=== PATIENT | male | born 1965 | race Caucasian/White ===

== ENCOUNTER 2016-07-02 07:57 | Emergency (ER) | payer OTHER ==
[~2016-07-02] VITALS: Ht 182.9 cm; Wt 93.0 kg
[~2016-07-02 07:57] MED LIST: BACTRIM DS TAB1 EACH PO; BACTROBAN15 GM TOP; DICLOFENAC SODI75 M2 PO; EC NAPROSYN500 MG PO; IBUPROFEN800 M1 PO; MOBIC 15MG15 MG PO; MOBIC15 M1 PO; NAPROSYN500 M1 PO; OSTEO BI-FLEX1 EAC1 PO; OXYCODONE HCL5 M1 PO; OXYCODONE5 M1 PO; OXYCODONE5 MG PO; PERCOCET 325 MG1 TA2 PO; PERCOCET 5-3251 EACH PO; PROTONIX20 M1 PO
--- NOTE | 2016-07-02 08:32 | ED GENERAL ADULT ---
History of Present Illness General Chief Complaint: General Adult Stated Complaint: RASH ? ABCESS ON FACE AND RT KNEE PAIN Source: patient Exam Limitations: no limitations Vital Signs & Intake/Output Vital Signs & Intake/Output Vital Signs Date Time Temp Pulse Resp B/P Pulse O2 O2 Flow FiO2 Ox Delivery Rate 07/02 0918 98.3 90 20 120/80 98 Room Air 07/02 0802 98.5 93 18 126/85 97 Room Air Allergies Coded Allergies: NO KNOWN ALLERGIES (02/19/16) Reconcile Medications Diclofenac Sodium 75 MG TABLET.DR 1 TAB PO BID ANTI-INFLAMMATORY (Reported) Doxycycline Hyclate 100 MG CAPSULE 1 CAP PO BID FOLLICULTIIS Mupirocin Calcium (Bactroban) 2 % CREAM..G. 1 LORENA TOP TID FOLLICULITIS apply to affected area(s) Oxycodone HCl 5 MG TABLET 1 TAB PO BIDP PRN PAIN Pantoprazole Sodium 40 MG TABLET.DR 1 CAP PO DAILY AC GI (Reported) Triage Note: 50 Y/O MALE C/O (1) R KNEE SWELLING "FOR A WHILE" - NO KNOWN INJURY. (2) ANTI-INFLAMMTORY WITH GOOD RELIEF, TOOK THIS AM (2) SMALL RED AREAS TO FACE/CHIN. STATES HE WAS EVAL'D ONCE BEFORE FOR SAME AND WAS GIVEN "A CREAM" WHICH WORKED. Triage Nurses Notes Reviewed? yes Onset: Gradual Duration: worse persistent since (1-2 weeks) Timing: recent history Injury Environment: home Severity: moderate Severity Numbers: 7 Modifying Factors: Improves With: immobilization, medication. HPI: Patient is a 50-year-old male with history of chronic knee pain and arthritis presenting to the emergency department with chief complaint worsening right knee pain been going on for the past 2 weeks. He reports that he "tweaked" his right knee over the holidays and noticed some increasing swelling. Denies any redness or fevers. He has an appointment with his orthopedist in a week and a half but his anti-inflammatory medication is not helping. He is also reporting increasing rash on the left side of face. He's had this before and he was told it is associated with his foster. He was given antibiotics at the time and antibiotic ointment which seemed to help. Denies any nausea vomiting fevers or chills chest pain or shortness of breath. (ADEEL HUMPHREYS,JEET) Past History Travel History Traveled to [place] past 21 day No Medical History Any Pertinent Medical History? 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 No (JEET LEES) Review of Systems Review of Systems Constitutional: Reports: no symptoms. Comments Review of systems: See HPI, All other systems negative. Constitutional, no chills fever or weight loss HEENT: No visual changes no sore throat no congestion Cardiovascular: No chest pain ,palpitation Skin, no jaundice Respiratory: No dyspnea cough sputum or hemoptysis GI: No nausea no vomiting : No dysuria No hematuria Muscle skeletal: no back pain, no neck pain, Neurologic: No numbness no gonzalez Psych: No stress anxiety or depression,. Heme/endocrine: No bruising no bleeding no polyuria or polydipsia Immunology: No splenectomy or history of AIDS (JEET LEES) Physical Exam Physical Exam General Appearance: well developed/nourished, no apparent distress, alert, awake , comfortable Comments: Well-developed well-nourished person in no acute distress HEENT: Pupils equally round and reactive to light and accommodation. Nose is atraumatic. Neck: Normal inspection Cardiovascular: normal JVP Respiratory: No respiratory distress. Extremity: no calf tenderness to palpation, normal and equal pulses. Tender to palpation along the medial aspect of the right patella. No erythema, moderate edema appreciated. Earful range of motion of the right patella somewhat limited secondary to pain. Negative anterior and posterior drawer test. Positive Vee test on the right patella. Pedal pulses are 2+ bilaterally. Neuro: Alert oriented x3, motor sensory normal Skin: Erythematous and vesicular rash noted over the left cheek and chin surrounding the foster. Nontender to palpation. No drainage. Psych: Mood and affect is normal, memory and judgment is normal. Core Measures ACS in differential dx? No CVA/TIA Diagnosis: No Severe Sepsis Present: No Septic Shock Present: No (JEET LEES) Progress Differential Diagnoses I considered the following diagnoses in my evaluation of the patient: Folliculitis, abscess, cellulitis, knee sprain, osteoarthritis, septic arthritis , gout, fx Plan of Care: Orders Procedure Date/time Status XRY-KNEE COMPLETE RIGHT 07/02 834 Active Diagnostic Imaging: Viewed by Me: Radiology Read. Discussed w/RAD: Radiology Read. Radiology Impression: PATIENT: ISABELL CAMPBELL PRESENT AGE: 50 PATIENT ACCOUNT NO: [id number] : 64 LOCATION: [facility] ORDERING PHYSICIAN: JEET HUMPHREYS SERVICE DATE: 07/02/16 EXAM TYPE: RAD - XRY-KNEE COMPLETE RIGHT EXAMINATION: XR KNEE, RIGHT CLINICAL INFORMATION: Pain and swelling. Rule out joint effusion. COMPARISON: Right knee radiographs dated 10/25/2015. TECHNIQUE: 4 radiographs of the right knee were performed. FINDINGS: There is no fracture or dislocation. There are degenerative changes of the medial and lateral compartments of the knee characterized by joint space narrowing and osteophytosis. There is spiking of the tibial spines. There is narrowing of the patellofemoral joint. The previously identified suprapatellar effusion is considerably smaller, if not completely resolved. IMPRESSION: Tricompartmental degenerative changes. The previously identified suprapatellar effusion is considerably smaller, if not completely resolved. DICTATED BY: KALI SHERIDAN MD DATE/TIME DICTATED:07/02/16899 TAPING MACHINE OPERATOR:DIANA DATE/TIME TRANSCRIBED:07/02/16899 CONFIDENTIAL, DO NOT COPY WITHOUT APPROPRIATE AUTHORIZATION. <Electronically signed in Other Vendor System> SIGNED BY: KALI SHERIDAN MD 07/02/16905 Initial ED EKG: none (ADEEL HUMPHREYS,JEET) Departure Departure Time of Disposition: 853 Disposition: HOME OR SELF CARE Condition: Stable Clinical Impression Primary Impression: Folliculitis Secondary Impressions: Knee pain Qualifiers: Laterality: right Chronicity: chronic Qualified Codes: M25.561 - Pain in right knee; G89.29 - Other chronic pain Referrals: MATILDE MAC MD (PCP/Family) Referred to [facility] as new patient No Additional Instructions: Follow-up with your primary care physician as well as her orthopedic. Return for worsening symptoms or concerns. Take antibiotics and use topical as prescribed. Take pain medication as prescribed for knee pain. Oxycodone is use for severe knee pain otherwise he can use [id number] Motrin. Departure Forms: Customer Survey General Discharge Information Prescriptions: Current Visit Scripts Mupirocin Calcium (Bactroban) 1 LORENA TOP TID #30 GM apply to affected area(s) Doxycycline Hyclate 1 CAP PO BID #20 CAP Oxycodone HCl 1 TAB PO BIDP PRN PAIN #10 TAB (JEET LEES) PA/INSPECTOR BALANCE TRUING Co-Sign Statement Statement: ED Attending supervision documentation- [] I saw and evaluated the patient. I have also reviewed all the pertinent lab results and diagnostic results. I agree with the findings and the plan of care as documented in the PA's/INSPECTOR BALANCE TRUING's documentation. x I have reviewed the ED Record and agree with the PA's/INSPECTOR BALANCE TRUING's documentation. [] Additions or exceptions (if any) to the PAs/INSPECTOR BALANCE TRUING's note and plan are summarized below: [] (REYES LAZO,CARITO) Critical Care Note Critical Care Note Critical Care Time: non-applicable (JEET LEES)
[2016-07-02] MEDS ORDERED: OXYCODONE HCL5 M1 PO (08:56)
[2016-07-02] MEDS ORDERED: BACTROBAN15 GM TOP (08:56)
[2016-07-02] MEDS ORDERED: DOXYCYCLINE HY100 M2 PO (08:56)
--- NOTE | 2016-07-02 09:06 | RADIOLOGY REPORT ---
EXAMINATION: XR KNEE, RIGHT CLINICAL INFORMATION: Pain and swelling. Rule out joint effusion. COMPARISON: Right knee radiographs dated 10/25/2015. TECHNIQUE: 4 radiographs of the right knee were performed. FINDINGS: There is no fracture or dislocation. There are degenerative changes of the medial and lateral compartments of the knee characterized by joint space narrowing and osteophytosis. There is spiking of the tibial spines. There is narrowing of the patellofemoral joint. The previously identified suprapatellar effusion is considerably smaller, if not completely resolved. IMPRESSION: Tricompartmental degenerative changes. The previously identified suprapatellar effusion is considerably smaller, if not completely resolved.
[2016-07-02 09:18] VITALS: BP 120/80
== END 2016-07-02 09:18 ==
LOC: ERH 07:57
DX: L73.9 Follicular disorder, unspecified (principal); M25.561 Pain in right knee
CPT/HCPCS: 73562-RT

== ENCOUNTER 2016-07-29 11:00 | Emergency (ER) | payer OTHER ==
[~2016-07-29] VITALS: Ht 182.9 cm; Wt 95.3 kg
[~2016-07-29 11:00] MED LIST changes: +DOXYCYCLINE HY100 M2 PO
--- NOTE | 2016-07-29 13:09 | ED UPPER/LOWER EXTREMITY COMPL ---
History of Present Illness General Chief Complaint: Hip Injury Stated Complaint: L HIP PAIN Source: patient, old records Exam Limitations: no limitations Vital Signs & Intake/Output Vital Signs & Intake/Output Vital Signs Date Time Temp Pulse Resp B/P Pulse O2 O2 Flow FiO2 Ox Delivery Rate 07/29 1321 98.0 70 20 130/80 98 Room Air 07/29 1110 97.2 72 16 132/90 98 Room Air Allergies Coded Allergies: NO KNOWN ALLERGIES (02/19/16) Reconcile Medications Diclofenac Sodium 75 MG TABLET.DR 1 TAB PO BID ANTI-INFLAMMATORY (Reported) Doxycycline Hyclate 100 MG CAPSULE 1 CAP PO BID FOLLICULTIIS Ibuprofen 800 MG TABLET 1 TAB PO TID PRN PAIN Mupirocin Calcium (Bactroban) 2 % CREAM..G. 1 LORENA TOP TID FOLLICULITIS apply to affected area(s) Oxycodone HCl 5 MG CAPSULE 1 CAP PO TID PRN BREAKTHROUGH PAIN Oxycodone HCl 5 MG TABLET 1 TAB PO BIDP PRN PAIN Pantoprazole Sodium 40 MG TABLET.DR 1 CAP PO DAILY AC GI (Reported) Triage Note: 50 YEAR OLD MALE TO ER WITH COMPLAINTS OF L HIP PAIN X 2 DAYS. DENIES INJURY, TOOK 1 OF HIS WIFES PERCOCET EARLIER TODAY WITH SOME RELIEF Triage Nurses Notes Reviewed? yes Onset: Abrupt Duration: day(s): (3), constant Timing: recent history Severity: mild, moderate Severity Numbers: 5 Pain/Injury Location: Left: Hip. Method of Injury: unknown Modifying Factors: Improves With: rest. Worsens With: movement. Associated Symptoms: none HPI: This is a 50-year-old male with history of cirrhosis presents to the emergency room complaining of left hip pain for the past 3-4 days after he states he slipped climbing up a bank while fishing. He states that he's had persistent left hip pain since that is worse with leaning to that side and movement. He denies any difficulty with walking there was no fall or trauma. He denies any abdominal pain back pain numbness or tingling down his legs. No urinary or bowel incontinence no hematuria. He took his 's Percocet with improvement. The patient was recently seen for chronic right knee pain attributed to arthritis for which she was seen by Dr. Tejeda for which she received a steroid injection with improvement. He denies any numbness or tingling. (QUYEN VALENCIA) Past History Travel History Traveled to [place] past 21 day No Medical History Any Pertinent Medical History? 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 No (QUYEN VALENCIA) Review of Systems Review of Systems Constitutional: Reports: see HPI. All Other Systems: Reviewed and Negative Comments Review of systems: See HPI, All other systems negative. Constitutional, no chills no fever, no malaise no weight loss HEENT: No visual changes no sore throat no congestion Cardiovascular: No chest pain , no palpitation Skin, no jaundice no rashes, no change in skin Respiratory: No dyspnea no cough no sputum GI: No nausea no vomiting, no diarrhea, : No dysuria Muscle skeletal: no back pain, no neck pain, Neurologic: No numbness, no headache Psych: No stress Heme/endocrine: No bruising no bleeding Immunology: No lymphadenopathy (QUYEN VALENICA) Physical Exam Physical Exam General Appearance: well developed/nourished, alert, awake Comments: Well-developed well-nourished person in no acute distress HEENT: Normal EENT exam; PERRL, EOMI, HEAD is atraumatic. moist mucous membranes. Neck: Supple, normal range of motion without pain or tenderness Back: Nontender. Full range of motion Cardiovascular: Regular rate and rhythms no murmurs rubs Respiratory: Chest nontender.There were no bony deformities, no asymmetry. No respiratory distress. Patient speaking in full complete sentences. Breath sounds clear to auscultation bilaterally abd: soft, nontender, no rebound or guarding Upper Extremity: No edema, full range of motion of extremities, normal and equal pulses bilaterally, 5 out of 5 strength noted to bilateral upper extremities Hip/Pelvis: Atraumatic/Stable. FROM. Tenderness to palpation with AB and right ear duction of the left hip no ecchymosis or signs of trauma No pain with pelvic compression Knee: Atraumatic/stable. FROM. No joint swelling, no effusion. No pain with ROM Leg: Atraumatic. Nontender. No edema, 5 out of 5 strength in the lower extremity, normal dorsiflexion of great toe bilaterally, gross sensation is intact Ankle/Foot: Atraumatic/stable. Skin intact. FROM. No swelling, no effusion. No laxity on exam Pulses: Normal/equal DP/PT pulses bilaterally. Brisk cap refill Neuro: Alert oriented x3, motor sensory normal, There were no obvious focal neurologic abnormalities. Skin: No appreciable rash on exposed skin, skin is warm and dry. Psych: Mood and affect is normal, memory and judgment is normal. (QUYEN VALENCIA) Progress Differential Diagnosis: arterial insufficiency, compartment syndrome, contusion, dislocation, DVT, fracture, gout, septic arthritis, sprain, tendon injury Plan of Care: there is been no recent injury or trauma or fall patient is declining imaging studies. He states that he will follow up with his orthopedist. Prescription for oxycodone and ibuprofen was provided advised rest ice, return anytime sooner symptoms worsen. The patient feels comfortable this plan I answered all his questions. I offered him x-rays at the time however patient again declined (QUYEN VALENCIA) Departure Departure Time of Disposition: 1315 Disposition: HOME OR SELF CARE Condition: Stable Clinical Impression Primary Impression: Hip pain, left Referrals: SARAH LAZO,IBAN MAC MD,MATILDE (PCP/Family) Additional Instructions: FOLLOW UP WITH YOUR ORTHOPEDIST AND PRIMARY CARE PHYSICIAN THIS WEEK. REST, ICE, IBUPROFEN DIRECTED, OXYCODONE FOR BREAKTHROUGH PAIN- USE CAUTION THIS IS A NARCOTIC AND WILL MAKE YOU DROWSY. NO DRIVING OR DRINKING ALCOHOL WHILE TAKING. THESE PRESCRIPTIONS WERE SENT TO THE [facility] Departure Forms: Customer Survey General Discharge Information Prescriptions: Current Visit Scripts Oxycodone HCl 1 CAP PO TID PRN BREAKTHROUGH PAIN #10 CAP Ibuprofen 1 TAB PO TID PRN PAIN #30 TAB (QUYEN VALENCIA) PA/REHABILITATION SERVICES DIRECTOR Co-Sign Statement Statement: ED Attending supervision documentation- [] I saw and evaluated the patient. I have also reviewed all the pertinent lab results and diagnostic results. I agree with the findings and the plan of care as documented in the PA's/REHABILITATION SERVICES DIRECTOR's documentation. [X] I have reviewed the ED Record and agree with the PA's/REHABILITATION SERVICES DIRECTOR's documentation. [] Additions or exceptions (if any) to the PAs/REHABILITATION SERVICES DIRECTOR's note and plan are summarized below: [] (JONH ARCHER DO)
[2016-07-29] MEDS ORDERED: OXYCODONE HCL5 M2 PO (13:18)
[2016-07-29] MEDS ORDERED: IBUPROFEN800 M1 PO (13:18)
[2016-07-29 13:21] VITALS: BP 130/80
== END 2016-07-29 13:21 ==
LOC: ERH 11:00
DX: M25.552 Pain in left hip (principal)

== ENCOUNTER 2016-12-15 13:13 | Emergency (ER) | payer OTHER ==
[~2016-12-15] VITALS: Ht 182.9 cm; Wt 93.0 kg
[~2016-12-15 13:13] MED LIST changes: +OXYCODONE HCL5 M2 PO
[2016-12-15] MEDS ORDERED: CIPRO500 M1 PO (15:54)
--- NOTE | 2016-12-15 15:55 | ED EAR COMPLAINT ---
History of Present Illness General Chief Complaint: General Adult Stated Complaint: MOYA, LEFT EAR SWOLLEN Source: patient Exam Limitations: no limitations Vital Signs & Intake/Output Vital Signs & Intake/Output Vital Signs Date Time Temp Pulse Resp B/P B/P Pulse O2 O2 Flow FiO2 Mean Ox Delivery Rate 12/15 1557 98.5 74 16 133/74 98 Room Air 12/15 1533 Room Air 12/15 1318 98.2 71 18 127/72 96 Room Air Room Air Allergies Coded Allergies: NO KNOWN ALLERGIES (02/19/16) Reconcile Medications Ciprofloxacin HCl (Cipro) 500 MG TABLET 1 TAB PO BID OTITIS EXTERNA Pantoprazole Sodium 40 MG TABLET. 1 CAP PO DAILY AC GI (Reported) Triage Note: TRIAGE: 50 Y/O MALE PRESENTS C/O LEFT EAR PAIN, REDNESS, SWELLING, AFTER ?PINPLE OR ?BUG BITE TO LEFT EAR. AFEBRILE IN TRIAGE. PAIN 5/10. Triage Nurses Notes Reviewed? yes HPI: 50M PMH GERD WITH 1 WEEK OF LEFT EAR PINNA PAIN, TENDERNESS, AND CLEAR DISCHARGE. THINKS HE MAY HAVE BEEN BITTEN BY A BUG BUT UNSURE. EAR IS RED WITH CLEAR DISCHARGE BUT NO EVIDENCE OF PURULENCE. NO CHANGE IN HEARING. DENIES HEADACHE, FEVER, CHILLS, NAUSEA, VOMITING, NECK STIFFNESS, CHANGE IN BALANCE. Past History Travel History Traveled to [place] past 21 day No Medical History Any Pertinent Medical History? 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 No Review of Systems Review of Systems Constitutional: Reports: see HPI. EENTM: Reports: see HPI. Respiratory: Reports: no symptoms. Cardiovascular: Reports: no symptoms. GI: Reports: no symptoms. Genitourinary: Reports: no symptoms. Musculoskeletal: Reports: no symptoms. Skin: Reports: no symptoms. Neurological/Psychological: Reports: no symptoms. Hematologic/Endocrine: Reports: no symptoms. Immunologic/Allergic: Reports: no symptoms. All Other Systems: Reviewed and Negative Physical Exam Physical Exam General Appearance: well developed/nourished, no apparent distress, alert, awake , anxious Head: atraumatic, normal appearance Eyes: Bilateral: normal appearance. Ears: Left: discharge, tenderness. Bilateral: canal normal, Tympanic normal. Nose: normal inspection Mouth/Throat: normal mouth inspection Neck: normal inspection, supple, full range of motion Cardiovascular/Respiratory: regular rate/rhythm, no respiratory distress Back: normal inspection, normal range of motion Neurologic/Psych: no motor/sensory deficits, awake, alert, oriented x 3, normal gait, continuity reader II-XII nml as tested Progress Differential Diagnoses I considered the following diagnoses in my evaluation of the patient: OTITIS EXTERNA, OTITIS MEDIA, CELLULITIS, MENINGITIS, ENCEPHALITIS, HSV, TRAUMA Plan of Care: OTITIS EXTERNA WITHOUT EAR CANAL INVOLVEMENT WITH NO SYSTEMIC SYMPTOMS. WILL GIVE CIPRO FOR 10 DAYS REFERRAL TO ENT AND PCP Initial ED EKG: none Departure Departure Time of Disposition: 1550 Disposition: HOME OR SELF CARE Condition: Stable Clinical Impression Primary Impression: Otitis externa Referrals: MATILDE MAC MD (PCP/Family) CAROLA KIDD MD Additional Instructions: KEEP YOUR EAR CLEAN AND DRY. MAY CONTINUE WITH NEOSPORIN OINTMENT AT HOME. TAKE THE FULL COURSE OF YOUR ANTIBIOTICS. FOLLOW UP WITH YOUR PRIMARY CARE PROVIDER. IF PAIN OR DISCHARGE WORSENS, FOLLOW UP WITH ENT REFERRAL. IF FEVER, NECK STIFFNESS, OR CHANGE IN YOUR MENTAL STATUS, RETURN TO EMERGENCY DEPARTMENT IMMEDIATELY. Departure Forms: Customer Survey General Discharge Information Prescriptions: Current Visit Scripts Ciprofloxacin HCl (Cipro) 1 TAB PO BID #20 TAB
[2016-12-15 15:57] VITALS: BP 133/74
== END 2016-12-15 16:03 ==
LOC: ERH 13:13
DX: H60.92 Unspecified otitis externa, left ear (principal)

== ENCOUNTER 2016-12-18 06:22 | Emergency (ER) | payer OTHER ==
[~2016-12-18 06:22] MED LIST changes: +CIPRO500 M1 PO
--- NOTE | 2016-12-18 06:33 | ED UPPER/LOWER EXTREMITY COMPL ---
History of Present Illness General Chief Complaint: Lower Extremity Problems Stated Complaint: RT KNEE POPPING OUT PER PT Source: patient, old records Exam Limitations: no limitations Vital Signs & Intake/Output Vital Signs & Intake/Output Vital Signs Date Time Temp Pulse Resp B/P B/P Pulse O2 O2 Flow FiO2 Mean Ox Delivery Rate 12/18 0636 83 22 128/86 95 Room Air Allergies Coded Allergies: NO KNOWN ALLERGIES (02/19/16) Reconcile Medications Ciprofloxacin HCl (Cipro) 500 MG TABLET 1 TAB PO BID OTITIS EXTERNA Diclofenac Sodium 75 MG TABLET.DR 1 TAB PO BID ANTIINFLAMMATORY (Reported) Oxycodone HCl/Acetaminophen (Percocet 5-325 MG Tablet) 5 MG-325 MG TABLET 1-2 TAB PO Q6P PRN PAIN Pantoprazole Sodium (Protonix) 20 MG TABLET. 1 TAB PO DAILY GERD (Reported) Triage Nurses Notes Reviewed? yes HPI: Patient was walking last night and felt a sudden pop in his right anterior knee. Patient states that it felt like his knee popped out of joint but then popped right back in. Since then patient has been having 10 out of 10 throbbing pain to his right knee. The pain is exacerbated with walking. There is no radiation. Patient states he has had similar symptoms in the past and is due to have a knee replacement but he is been trying to put it off. Past History Travel History Traveled to [place] past 21 day No Medical History Any Pertinent Medical History? 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 No Review of Systems Review of Systems Constitutional: Reports: no symptoms. Respiratory: Reports: no symptoms. Cardiovascular: Reports: no symptoms. Gastrointestinal/Abdominal: Reports: no symptoms. Musculoskeletal: Reports: see HPI, joint pain. Neurological/Psychological: Reports: no symptoms. Immunological: Reports: no symptoms. Physical Exam Physical Exam General Appearance: well developed/nourished, alert, awake, mild distress Head: atraumatic, normal appearance Eyes: Bilateral: PERRL, EOMI. Cardiovascular/Respiratory: normal breath sounds, normal peripheral pulses, regular rate/rhythm, no respiratory distress Knee Right: normal range of motion, normal inspection, tenderness, soft tissue tenderness Knee Ligaments Right: stable Neurologic/Tendon: normal sensation, normal motor functions, normal tendon functions Progress Differential Diagnosis: dislocation, fracture, sprain Plan of Care: Orders Procedure Date/time Status Durable Medical Equipment 12/18 0787 Active Comments: Patient states that he has a knee immobilizer home and does not need another one. Patient promises to put it on a as he gets home. Departure Departure Disposition: HOME OR SELF CARE Condition: Stable Clinical Impression Primary Impression: Right knee sprain Referrals: SARAH LAZO,IBAN MAC MD,MATILDE (PCP/Family) Additional Instructions: WEAR IMMOBILIZER FOR SUPPORT FOLLOW UP WITH DR. SMITH RETURN FOR ANY CONCERNS Departure Forms: Customer Survey General Discharge Information Prescriptions: Current Visit Scripts Oxycodone HCl/Acetaminophen (Percocet 5-325 MG Tablet) 1-2 TAB PO Q6P PRN PAIN #20 TAB
[2016-12-18 06:36] VITALS: BP 128/86
[2016-12-18] MEDS ORDERED: DICLOFENAC SODI75 M2 PO (06:38)
[2016-12-18] MEDS ORDERED: PERCOCET 5-3251 EACH PO (06:39)
[2016-12-18] MEDS ORDERED: OXYCODONE HCL5 M2 PO (06:49)
== END 2016-12-18 06:49 ==
LOC: ERH 06:22
DX: S83.91XA Sprain of unspecified site of right knee, initial encounter (principal); X58.XXXA Exposure to other specified factors, initial encounter; Y93.9 Activity, unspecified; Y92.9 Unspecified place or not applicable